=== PATIENT | male | born 1995 | race Caucasian/White ===

== ENCOUNTER 2019-10-06 17:17 | Emergency (ER) | payer OTHER ==
[~2019-10-06] VITALS: Ht 172.7 cm; Wt 79.5 kg
[2019-10-06 17:23] VITALS: TEMP 98.2
[2019-10-06 19:03] VITALS: BP 120/75; PULSE 84
== END 2019-10-06 19:03 | disposition home or self-care (01) ==
LOC: COL.ER 17:17
DX: S43.101A Unspecified dislocation of right acromioclavicular joint, initial encounter (principal); S83.92XA Sprain of unspecified site of left knee, initial encounter; V86.56XA Driver of dirt bike or motor/cross bike injured in nontraffic accident, initial encounter